=== PATIENT | female | born 1945 | race Caucasian/White ===

== ENCOUNTER 2017-01-26 09:49 | Emergency (ER) | payer MEDICAID, MEDICARE ==
[~2017-01-26 09:49] MED LIST: ARIC5TAB PO; ASPI81TA82 PO; IBUP400 PO; LITH300 PO; MECL25CH PO; OMEP20TA39 PO; POLY119S PO; PROP20 PO; VITA100020 PO; Z.0.WALKERFRONT; ZYPR15TA PO
[2017-01-26 10:00] VITALS: BP 136/60; PULSE 60; RESP 18; TEMP 98.1; O2SAT 98
[2017-01-26 10:03] VITALS: BP 130/60; PULSE 59; RESP 18; TEMP 98.1; O2SAT 98
[2017-01-26] MEDS ORDERED: SODIUM CHLORIDE 0.9% FLUSH 10 ML FLUSH IVF PRN (10:15)
--- NOTE | 2017-01-26 10:32 | PD ---
HPI Chief Complaint: Dizziness Time Seen by Provider: 10:04 Travel History International Travel<30 days: No Contact w/Intl Traveler<30days: No Traveled to known affect area: No History of Present Illness HPI 71-year-old female here with complaint of dizziness. Patient states that she has bipolar disorder and lives with the care home. For the last year she has had presyncopal episodes when standing quickly. Describes this as lightheadedness, dizziness and nausea when standing quickly. Her symptoms improved when she sits down. She has never had any falls or syncopal episodes. She had a recurrent episode today that is not any different than it has been over the last year but her care home Center in for evaluation on Friday morning. She denies any associated chest pain, shortness of breath, palpitations. PFSH Past Medical History Bipolar Disorder: Yes Cardiovascular Problems: Yes Dementia: Yes (TREATED WITH ARICEPT) Diminished Hearing: No Hypertension: Yes Seizures: Yes ?: Not Past Surgical History Section: Yes (x 2) Social History Alcohol Use: No Tobacco Use: No Substance Use: No Allergies-Medications (Allergen,Severity, Reaction): Coded Allergies: No Known Allergies (Verified , 01/26/17) Reported Meds & Prescriptions Reported Meds & Active Scripts Active Walker Front Wheel (Walkerfront) Device 1 Unit Meclizine Hcl (Meclizine HCl) 25 Mg Chw 25 Mg PO TID PRN Reported Hm Omeprazole (Omeprazole) 20 Mg Tab 20 Mg PO DAILY Vitamin B-12 (Cyanocobalamin) 1,000 Mcg Tab 1,000 Mcg PO DAILY Aspir-81 (Aspirin) 81 Mg Tab 81 Mg PO DAILY [place] Carbonate 300 Mg Tab 600 Mg PO HS Motrin 400 mg Tab (Ibuprofen) 400 Mg Tab 400 Mg PO Q8H PRN Aricept (Donepezil HCl) 5 Mg Tab 5 Mg PO DAILY Zyprexa (Olanzapine) 15 Mg Tab 15 Mg PO HS Inderal (Propranolol HCl) 20 Mg Tab 20 Mg PO TID Review of Systems Except as stated in HPI: all other systems reviewed are Neg Physical Exam Narrative GENERAL: Well-appearing elderly female in no acute distress SKIN: Focused skin assessment warm/dry. HEAD: Normocephalic. EYES: No scleral icterus. No injection or drainage. ENT: Mucous membranes pink and moist. NECK: Supple CARDIOVASCULAR: Regular rate and rhythm. No murmur appreciated. RESPIRATORY: No accessory muscle use. Clear to auscultation. Breath sounds equal bilaterally. GASTROINTESTINAL: Abdomen soft, non-tender, nondistended. MUSCULOSKELETAL: No obvious deformities. No edema. NEUROLOGICAL: Awake and alert. Motor grossly within normal limits. Normal speech. PSYCHIATRIC: Appropriate mood and affect; insight and judgment normal. Data Data Last Documented VS Vital Signs Date Time Temp Pulse Resp B/P Pulse Ox O2 Delivery O2 Flow Rate FiO2 01/26/17 10:03 98.1 59 18 130/60 98 Room Air Orders Electrocardiogram (01/26/17 10:08) Basic Metabolic Panel (Bmp) (01/26/17 10:08) Complete Blood Count With Diff (01/26/17 10:08) Urinalysis - C+S If Indicated (01/26/17 10:08) Ecg Monitoring (01/26/17 10:08) Iv Access Insert/Monitor (01/26/17 10:08) Oximetry (01/26/17 10:08) Sodium Chloride 0.9% Flush (Ns Flush) (01/26/17 10:15) Cath For Specimen (01/26/17 10:09) Urine Culture (01/26/17 10:30) Labs Laboratory Tests Test 01/26/17 01/26/17 10:15 10:30 White Blood Count 6.8 TH/MM3 Red Blood Count 4.10 MIL/MM3 Hemoglobin 13.0 GM/DL Hematocrit 37.5 % Mean Corpuscular Volume 91.5 FL Mean Corpuscular Hemoglobin 31.7 PG Mean Corpuscular Hemoglobin 34.6 % Concent Red Cell Distribution Width 13.7 % Platelet Count 270 TH/MM3 Mean Platelet Volume 7.8 FL Neutrophils (%) (Auto) 75.3 % Lymphocytes (%) (Auto) 15.1 % Monocytes (%) (Auto) 6.8 % Eosinophils (%) (Auto) 1.6 % Basophils (%) (Auto) 1.2 % Neutrophils # (Auto) 5.1 TH/MM3 Lymphocytes # (Auto) 1.0 TH/MM3 Monocytes # (Auto) 0.5 TH/MM3 Eosinophils # (Auto) 0.1 TH/MM3 Basophils # (Auto) 0.1 TH/MM3 CBC Comment DIFF FINAL Differential Comment Sodium Level 137 MEQ/L Potassium Level 4.6 MEQ/L Chloride Level 110 MEQ/L Carbon Dioxide Level 21.8 MEQ/L Anion Gap 5 MEQ/L Blood Urea Nitrogen 19 MG/DL Creatinine 1.52 MG/DL Estimat Glomerular Filtration 34 ML/MIN Rate Random Glucose 110 MG/DL Calcium Level 9.7 MG/DL Urine Color YELLOW Urine Turbidity HAZY Urine pH 6.5 Urine Specific Mobile 1.009 Urine Protein NEG mg/dL Urine Glucose (UA) NEG mg/dL Urine Ketones NEG mg/dL Urine Occult Blood NEG Urine Nitrite NEG Urine Bilirubin NEG Urine Urobilinogen LESS THAN 2.0 MG/DL Urine Leukocyte Esterase LARGE Urine RBC LESS THAN 1 /hpf Urine WBC 78 /hpf Urine WBC Clumps FEW Urine Squamous Epithelial <1 /hpf Cells Urine Amorphous Sediment FEW Urine Bacteria OCC /hpf Urine Mucus FEW /lpf Microscopic Urinalysis Comment CATH-CULTURE IND MDM Medical Decision Making Medical Screen Exam Complete: Yes Emergency Medical Condition: Yes Medical Record Reviewed: Yes Differential Diagnosis 71-year-old female here with complaint of presyncopal symptoms over the last year not worse today. Differential includes dehydration, elect to light abnormality, symptomatic anemia though my strong suspicion is for orthostatic hypotension based on her symptoms. Narrative Course Patient placed on monitor, IV established and blood obtained. A twelve-lead EKG shows sinus bradycardia, rate [address] or T-wave abnormalities and normal intervals. CBC, BMP, urinalysis were obtained and notable for large leukocyte esterase with white cell, white cell clumps and bacteria. Patient was treated with Keflex and discharged home. Diagnosis Primary Impression: UTI (urinary tract infection) Qualified Code: N30.00 - Acute cystitis without hematuria Additional Impression: Pre-syncope Referrals: Primary Care Physician call for appointment Additional Instructions: Antibiotics as prescribed for urinary tract infection. Follow-up with primary care provider for lightheadedness and presyncopal symptoms. Med/Other Pt SpecificInfo: Prescription(s) given Scripts Cephalexin (Keflex)500 Mg Mjp080 Mg PO Q8H 7 Days Ref 0 Prov:Rosa Whitaker MD 01/26/17 Disposition: 01 DISCHARGE HOME Condition: Stable Rosa Whitaker MD Jan 26, 2017 10:32
[2017-01-26 10:48] LABS: AUTOMATED NEUTROPHIL # 5.1 TH/MM3 (1.8-7.7); BASOPHIL # 0.1 TH/MM3 (0-0.2); BASOPHIL % 1.2 % (0.0-2.0); EOSINOPHIL # 0.1 TH/MM3 (0-0.4); EOSINOPHIL % 1.6 % (0.0-4.0); HEMATOCRIT 37.5 % (35.0-46.0); HEMO FLAGS DIFF FINAL; LYMPH % 15.1 % (9.0-44.0); MEAN CELL VOLUME 91.5 FL (80.0-100.0); MEAN CORPUSCULAR HEMOGLOBIN 31.7 PG (27.0-34.0); MEAN CORPUSCULAR HGB CONC 34.6 % (32.0-36.0); MONO % 6.8 % (0.0-8.0); NEUT % 75.3 % (16.0-70.0); PLATELET COUNT 270 TH/MM3 (150-450); RED CELL DISTRIBUTION WIDTH 13.7 % (11.6-17.2); WHITE BLOOD COUNT 6.8 TH/MM3 (4.0-11.0)
[2017-01-26 10:59] LABS: BACTERIA, URINE OCC /hpf; BLOOD, URINE NEG (NEG); GLUCOSE,URINE NEG (NEG); KETONE, URINE NEG (NEG); MUCUS URINE FEW /lpf (OCC); NITRITE,URINE NEG (NEG); PH, URINE 6.5 (5.0-8.5); SQUAMOUS EPITHELIAL CELL URINE <1 /hpf (0-5); URINE COLOR YELLOW (YELLW/STRAW)
[2017-01-26 11:00] LABS: COMMENT (UR) CATH-CULTURE IND; CULTURE IF INDICATED CATH CULTURE IND
[2017-01-26 11:02] LABS: BICARBONATE 21.8 MEQ/L (21.0-32.0); POTASSIUM 4.6 MEQ/L (3.5-5.1)
[2017-01-26] MEDS ORDERED: CEPH-460 PO (11:17)
[2017-01-26 11:40] VITALS: O2SAT 98
[2017-01-26 13:11] VITALS: BP 132/70
--- NOTE | 2017-01-26 14:09 | EKG ---
Date Performed: 01/26/2017 Time Performed: 10:23:27 PTAGE: 71 years EKG: SINUS BRADYCARDIA OTHERWISE, WITHIN NORMAL LIMITS Compared to previous tracing, heart rate is slower, otherwise, no signficant change. BORDERLINE ECG PREVIOUS TRACING : 12/19/2015 15.01 DOCTOR: Jason Bai Interpretating Date/Time 01/26/2017 14:09:26
== END 2017-01-26 13:13 | disposition home or self-care (01) ==
LOC: NEPE 09:49
DX: N39.0 Urinary tract infection, site not specified (principal); R55 Syncope and collapse; B96.1 Klebsiella pneumoniae [K. pneumoniae] as the cause of diseases classified elsewhere
CPT/HCPCS: 80048; 81001; 85025; 87077; 87086; 87186; 93005; 99284; P9612